=== PATIENT | female | born 1960 | race Caucasian/White ===

== ENCOUNTER 2021-02-13 16:53 | Emergency (ER) | payer MEDICARE, OTHER ==
[~2021-02-13] VITALS: Ht 160 cm; Wt 113.0 kg
[2021-02-13] MEDS ORDERED: AMIODARONE 450 MG/9 ML (CORDARONE) VIAL IV ONE (17:19)
[2021-02-13] MEDS ORDERED: NS IV 500 ML 500 ML ONE (17:20)
[2021-02-13] MEDS ORDERED: D5W IV SOLUTION (EXCEL) 250 ML IV ONE (17:22)
[2021-02-13 17:27] LABS: HEMOGLOBIN 16.6 g/dL (11.5-16.0); MEAN CORPUSCULAR VOLUME 112 fL (80-99)
[2021-02-13 17:29] LABS: BASOPHILS # (AUTO) 0.1 10^3/uL (0.0-0.1); BASOPHILS % (AUTO) 1 % (0-10); EOSINOPHILS # (AUTO) 0.1 10^3/uL (0.0-0.3); EOSINOPHILS % (AUTO) 1 % (0-10); HEMATOCRIT 56 % (35-52); LYMPHOCYTES # (AUTO) 4.2 10^3/uL (1.0-4.0); LYMPHOCYTES % (AUTO) 42 % (12-44); MEAN CORPUSCULAR HEMOGLOBIN 33 pg (25-34); MEAN CORPUSCULAR HGB CONC 30 g/dL (32-36); MEAN PLATELET VOLUME 10.6 fL (9.0-12.2); MONOCYTES # (AUTO) 0.5 10^3/uL (0.0-1.0); MONOCYTES % (AUTO) 5 % (0-12); NEUTROPHILS # (AUTO) 4.6 10^3/uL (1.8-7.8); NEUTROPHILS % (AUTO) 46 % (42-75); PLATELET COUNT 99 10^3/uL (130-400); WHITE BLOOD COUNT 10.1 10^3/uL (4.3-11.0)
[2021-02-13] MEDS ORDERED: AMIODARONE INJECTION 450 MG in D5W IV SOLUTION (EXCEL) 250 ML IV SCH (17:30)
[2021-02-13 17:37] LABS: ALBUMIN 3.6 GM/DL (3.2-4.5); POTASSIUM 4.9 MMOL/L (3.6-5.0)
[2021-02-13 17:38] LABS: CALCIUM 11.9 MG/DL (8.5-10.1)
[2021-02-13 17:39] LABS: TOTAL PROTEIN 6.9 GM/DL (6.4-8.2)
[2021-02-13 17:41] LABS: BILIRUBIN,TOTAL 0.3 MG/DL (0.1-1.0)
[2021-02-13 17:43] LABS: CREATININE SERUM 1.17 MG/DL (0.60-1.30)
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
[2021-02-13 18:08] LABS: MAGNESIUM 3.1 MG/DL (1.6-2.4)
== END 2021-02-13 23:14 | disposition expired ==
LOC: ER 16:57
DX: I46.9 Cardiac arrest, cause unspecified (principal); Z20.822 Contact with and (suspected) exposure to COVID-19
CPT/HCPCS: 36415; 36680; 80053; 83735; 84484; 85025; 85027; 87636